=== PATIENT | male | born 1970 | race Caucasian/White ===

== ENCOUNTER 2023-04-09 08:59 | Emergency (ER) | payer SELFPAY ==
[2023-04-09 09:01] VITALS: BP 190/123; PULSE 108; RESP 20; TEMP 36.4; O2SAT 96; BMI 35.3
--- NOTE | 2023-04-09 09:33 | EKG12_ITS ---
Test Reason : Blood Pressure : / mmHG Vent. Rate : 094 BPM Atrial Rate : 094 BPM P-R Int : 190 ms QRS Dur : 126 ms QT Int : 392 ms P-R-T Axes : 028 -89 023 degrees QTc Int : 490 ms Normal sinus rhythm Left axis deviation Right bundle branch block Inferior infarct , age undetermined Abnormal ECG Confirmed by SILVINO EDWARDS, PAOLA ([id number]), editor greeting card ASHA JOSÉ ([id number]) on 04/10/2023 12:05:45 PM Referred By: Confirmed By:PAOLA DUBOIS MD
--- NOTE | 2023-04-09 09:33 | RAD_ITS ---
STUDY: X-RAY - LEFT FOOT CLINICAL: Male, 52 years old. infection -- great toe TECHNIQUE: 3 view(s) of the foot. COMPARISON: None. FINDINGS: Normal talus, calcaneus, and tarsal bones. Normal visualized subtalar, talonavicular, calcaneocuboid, tarsal and tarsometatarsal articulations. Normal metatarsi. Normal metatarsophalangeal joint of the great toe. Normal tibial and fibular sesamoid bones. Normal interphalangeal joint of the great toe. Normal phalanges of the great toe. Normal second through fifth metatarsophalangeal joints. Normal interphalangeal joints and phalanges of the lesser toes. Diffuse soft tissue swelling. RAD/Foot min 3 Views IMPRESSION: Soft tissue swelling. Electronically Signed: Salomón Umanzor MD at 11:02 EDT ,
--- NOTE | 2023-04-09 09:35 | EX.ED.DYSGE1 ---
HPI History of Present Illness Chief Complaint: General Illness Informant: patient Narrative Narrative: ED worsening swelling bilateral legs does report some shortness of breath with laying down. Denies history of heart failure. Started have leg swelling a month ago saw PCP office started on Lasix 20 mg twice a day. Has not follow-up with PCP however did go to [place] [facility] a week ago. Has Lasix doubled to 40 mg twice a day. He has been taking this. Decreased urine output. Denies dysuria. Diabetic with neuropathy. During evaluation noted left great toe ulcer states started with a scratch a month or 2 ago. A week ago using crocs toe went through the shoe increasing ulcer. He denies fever or chills. 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 Prior similar symptoms: Yes PFSH PFSH Home Medications cephalexin 500 mg capsule 500 mg PO Q6 #40 CAPSULES 04/09/23 [Rx Last Taken Unknown] metolazone 5 mg tablet 5 mg PO DAILY #7 tabs 04/09/23 [Rx Last Taken Unknown] Allergy/AdvReac Type Severity Reaction Status Date / Time No Known Allergies Allergy Verified 04/09/23 09:01 Social History Smoking Status: Never smoker ROS ROS ED Constitutional Constitutional ED: Denies chills, fever(s) or sweats Eyes Eyes: Denies change in vision ENT ENT ED: Denies dysphagia or sore throat Cardiovascular Cardiovascular: Reports leg edema and orthopnea; Denies chest pain, palpitations or racing heartbeat Respiratory/Chest Respiratory/Chest: Reports orthopnea; Denies cough, dyspnea or dyspnea on exertion Gastrointestinal Gastrointestinal: Denies abdominal pain, diarrhea, nausea or vomiting Genitourinary Genitourinary ED: Denies dysuria, hematuria or urinary frequency Musculoskeletal Musculoskeletal: Denies back pain, extremity pain or neck pain Integumentary Reports wounds; Denies rash Neurologic Neurologic: Denies headache(s), paresthesias or weakness EXAM Physical Exam Const Vital Signs: 04/09/23 09:01 04/09/23 09:00 04/09/23 12:11 Temperature 97.6 F L Temperature Source Temporal Pulse Rate 108 H Respiratory Rate 20 H Respiratory Effort Normal Non-Labored Respiratory Pattern Normal Blood Pressure 190/123 H 151/108 H Blood Pressure Mean 145 122 Pulse Ox 96 Oxygen Delivery Method Room Air Positive well nourished and well developed General Appearance ED: well developed and NAD HEENT Reports moist mucous membranes normocephalic and atraumatic Eyes PERRL, EOMs intact bilaterally and conjunctivae normal General Eye ED: Yes normal appearance of both eyes Neck no lymphadenopathy and supple General: Negative for tenderness Chest Wall Chest: Negative for tenderness Resp normal respiratory effort and normal air movement Effort and Inspection: symmetric chest movement; Negative for respiratory distress Cardio regular rate, regular rhythm and no murmurs Peripheral Pulses: pulses 2+ throughout GI normal to inspection, nondistended, normoactive bowel sounds and non-tender Palpation: Negative for guarding or rebound tenderness present Back/Spine no CVA tenderness and no thoracic nor lumbar tenderness Extremity normal to inspection Extremity Narrative: 2+ lower extremity edema. Left great toe 2 cm ulceration at the tip, no bone exposure no drainage there is some erythema of the great toe slight swelling. No streaking up the foot or leg. General Extremety ED: Yes edema; Negative for tenderness General Extremity: edema Neuro oriented x3 and no sensory deficits noted Sensorium / Orientation: awake and alert Skin Skin Narrative: See above MDM MDM MDM Narrative Medical decision making narrative: Interventions / MDM: Differential diagnosis: CHF, peripheral edema, electrolyte abnormalities Diagnosis considered but do not suspect: N/A My EKG interpretation: Sinus rate of 94, no ST changes, right bundle branch block. No old in the system as he had no prior visits for comparison. Imaging independently reviewed and interpreted by myself: 2 view chest x-ray mild pleural effusion. Also read by radiology. DVT studies bilateral lower extremities negative. Left foot x-ray 3 views: Soft tissue swelling. External documents reviewed: N/A Test considered but not ordered:N/A ED course: Patient worsening swelling in the legs with increased Lasix over the last week. Mild dyspnea and orthopnea. No CHF history. She reports decreased urine output. Labs ordered for evaluation. Chest x-ray, ultrasound lower extremities. Foot examination diabetic toe ulcer mild erythema. X-ray foot ordered. Results of blood work okay for patient creatinine 0.79 BNP 533 chest x-ray with pleural effusion. Considered admission for failing outpatient treatment reports persistent swelling lower extremities. However he declines this and prefer outpatient work-up. He is treated with 80 mg IV Lasix in the ED and started urinating. Negative DVT studies. He is ambulated pulse ox remaining stable. Therefore discussed continue Lasix 40 minutes twice daily we will add metolazone for 7 days. For his toe ulcer normal white count. He has neuropathy. He started on Keflex and given podiatry for outpatient follow-up. Discussed patient needs to see his PCP within this next week outpatient evaluation. Strict return precautions. All questions were answered. Re-evaluation: stable Disposition discussed with patient/family/significant other: Patient and family Case discussed with consulting clinician: N/A This note was generated with [employer] dictation software. It may contain incorrect words, spelling, and punctuation that were not noted in checking the note before signing. Lab Data Labs: Laboratory Results - last 24 hr 04/09/23 09:50 WBC 6.4 RBC 5.29 Hgb 15.0 Hct 46.5 MCV 87.9 MCH 28.4 MCHC 32.3 RDW Std Deviation 42.3 RDW Coeff of Ambar 13.2 Plt Count 166 MPV 11.2 Immature Gran % (Auto) 0.200 Neut % (Auto) 67.7 Lymph % (Auto) 19.8 [place] % (Auto) 10.0 Eos % (Auto) 1.7 Baso % (Auto) 0.6 Absolute Neuts (auto) 4.4 Absolute Lymphs (auto) 1.27 Nucleated RBC % 0 Sodium 143 Potassium 4.1 Chloride 107 Carbon Dioxide 32.0 Anion Gap 4 L BUN 19 H Creatinine 0.79 Estim Creat Clear Calc 104.62 Est GFR (MDRD) Af Amer 131 Est GFR (MDRD) Non-Af 108 BUN/Creatinine Ratio 23.9 H Glucose 171 H Calcium 9.0 B-Natriuretic Peptide 533.6 H Radiography Diagnostic Testing: Clinical Impression(s) from Imaging Studies Foot X-Ray 04/09/23 09:33 IMPRESSION: Soft tissue swelling. Electronically Signed: Salomón Umanzor MD at 11:02 EDT , Chest X-Ray 04/09/23 10:42 IMPRESSION: CHF with small bilateral pleural effusions worse on the left side with left basilar atelectasis and/or infiltrate. Electronically Signed: Salomón Umanzor MD at 11:01 EDT , Discharge Plan Triage Chief Complaint: General Illness ED Provider: Jack Mak Dx/Rx/DC Orders Clinical Impression: CHF (congestive heart failure), Diabetic toe ulcer, Edema, peripheral Instructions: ED CHF Left Side, ED Diabetic Foot Care, ED Peripheral Edema, Bilateral Prescriptions: New metolazone 5 mg tablet 5 mg PO DAILY Qty: 7 0RF cephalexin [cephalexin] 500 mg capsule 500 mg PO Q6 Qty: 40 0RF Primary Care Provider: Kristi Schmitt Referrals: Alfonso Peters DPM [Med Staff - Active Staff] - 1 Week Kristi Schmitt MD [Primary Care Provider] - 3-5 Days Activity Restrictions/Additional Instructions: Work-up with mild CHF. You are not hypoxic. Your creatinine 0.79. Ultrasound your legs are negative. You are given Lasix IV in the ED. Continue Lasix 40 mg twice a day take metolazone daily. You need to follow-up with your doctor reevaluation in the next week for recheck and continued treatment and further evaluation and possible echocardiogram as an outpatient. You have a diabetic left great toe ulcer. X-ray negative, normal. Take as prescribed. Follow-up with podiatry for outpatient evaluation. Return if any worsening symptoms. Disposition Disposition: Home, Self Care Discharge Date/Time: 04/09/23 12:38
--- NOTE | 2023-04-09 09:37 | NURSING ---
NO OLD EKGS
[2023-04-09 10:01] LABS: Absolute Lymphocyte Count 1.27 X10^3/uL (0.83-4.51); Absolute Neutrophil Count 4.4 X10^3/uL (2.0-7.7); Basophil# 0.04 X10^3/uL; Basophil% 0.6 % (0-1); Eosinophil# 0.11 X10^3/uL; Eosinophils% 1.7 % (0-5); Hematocrit 46.5 % (40-54); Lymphocyte # 1.27 X10^3/ul (0.83-4.51); Lymphocyte % 19.8 % (19-41); Mean Corp Hgb Conc 32.3 g/dL (32-36); Mean Corpuscular Hgb 28.4 pg (27.0-32.0); Mean Corpuscular Volume 87.9 fL (80-94); Mean Platelet Vol. 11.2 fl (6.2-12.0); Monocyte# 0.64 X10^3/uL; NRBC Flagged by Analyzer 0 % (0-5); Neutrophil # 4.36 X10^3/uL (2.7-7.7); Neutrophil % 67.7 % (47-70); Platelet Count 166 K/mm3 (150-450); RBC Distribution Width CV 13.2 % (11.6-14.6); RBC Distribution Width SD 42.3 fl (35.1-43.9); Red Blood Count 5.29 M/mm3 (4.6-6.2); White Blood Count 6.4 K/mm3 (4.4-11.0)
--- NOTE | 2023-04-09 10:03 | VDLE_ITS ---
Reason For Study: BLE Swelling RIGHT LEFT GSV is normal. GSV is normal. CFV is compressible, spontaneous, competent CFV is compressible, spontaneous, competent, and demonstrates pulsatile venous flow. and demonstrates pulsatile venous flow. FV is compressible, spontaneous, competent FV is compressible, spontaneous, competent and demonstrates pulsatile venous flow. and demonstrates pulsatile venous flow. POP V is compressible, spontaneous, competent POP V is compressible, spontaneous, competent and demonstrates pulsatile venous flow. and demonstrates pulsatile venous flow. T/P Trunk is compressible. T/P Trunk is compressible. PTV is compressible. PTV is compressible. RT PerV is compressible. LT PerV is compressible. Procedure This is a venous duplex using B-mode, color flow and spectral Doppler. Exam performed portable in ED. The exam was diagnostic. A preliminary report was called and/or faxed to ED RN responsible for patient. VL/Venous Duplex US - Mj Extrem Interpretation Summary No evidence for acute deep venous thrombosis bilateral lower extremities with p atent and compressible bilateral great saphenous veins. Pulsatile venous flow is noted bi laterally consistent with proximal venous hypertension or obstruction. Clinical correlation would be appropriate. Ordering Physician: Jcak Mak Referring Physician: Kristi Schmitt Performed By: Dionicio Price, RVT
[2023-04-09 10:09] LABS: Anion Gap 4 (5-15); BUN 19 mg/dL (7-18); BUN/Creat Ratio 23.9 RATIO (10-20); Chloride 107 mmol/L (98-107); Creatinine, Serum 0.79 mg/dL (0.70-1.30); EST Glomerular Filtration Rate 108 mL/min (>60); Est Glom Filt Rate - Afr Amer 131 mL/min (>60); Estimated Creatinine Clearance 104.62 ml/min; Glucose 171 mg/dL (74-106); Potassium 4.1 mmol/L (3.5-5.1); Sodium Level 143 mmol/L (136-145)
--- NOTE | 2023-04-09 10:42 | RAD_ITS ---
STUDY: X-RAY CHEST REASON FOR EXAM: Male, 52 years old. Sob TECHNIQUE: PA and lateral views of the chest. COMPARISON: None. FINDINGS: CHF. Small bilateral pleural effusions left greater than right with bibasilar atelectasis and/or infiltrates worse on the left lung base. There is mild cardiac enlargement. Normal mediastinum and yefri. Normal visualized pulmonary arteries. Normal visualized aortic arch and descending thoracic aorta. Normal visualized thoracic spine. Normal visualized ribs, clavicles, and shoulders. There is no demonstrated abnormality of the visualized soft tissue structures of the upper abdomen. RAD/Chest PA and Lateral IMPRESSION: CHF with small bilateral pleural effusions worse on the left side with left basilar atelectasis and/or infiltrate. Electronically Signed: Salomón Umanzor MD at 11:01 EDT ,
[2023-04-09] MEDS: Furosemide 100 MG/10 ML Vial 80 MG IV (11:36)
[2023-04-09 12:11] VITALS: BP 151/108
[2023-04-09 12:26] LABS: BNP,B-Type NATRIURETIC PEPTIDE 533.6 pg/mL (0-100)
== END 2023-04-09 12:38 | disposition home or self-care (01) ==
PROVIDERS: Emergency Provider Emergency Medicine; PCP Student in an Organized Health Care Education/Training Program; Visit Provider Emergency Medicine
DX: I50.9 Heart failure, unspecified (principal); E11.621 Type 2 diabetes mellitus with foot ulcer; L97.529 Non-pressure chronic ulcer of other part of left foot with unspecified severity; E11.40 Type 2 diabetes mellitus with diabetic neuropathy, unspecified; M79.89 Other specified soft tissue disorders; R06.02 Shortness of breath; I45.10 Unspecified right bundle-branch block
CPT/HCPCS: 71046; 73630; 80048; 83880; 85025; 93005; 93970; 96374; 99283; J1940